=== PATIENT | female | born 1975 | race African-American/Black ===

== ENCOUNTER 2017-09-24 00:08 | Emergency (ER) | payer BC ==
[~2017-09-24] VITALS: Ht 162.6 cm; Wt 79.4 kg
[~2017-09-24 00:08] MED LIST: HYDROCHLOROTHIA25 M2 PO; HYDROCODONE-AP1 EAC6 PO; IMODIUM A-D2 MG PO; NORCO 5-325 TA1 EACH PO; NORVASC5 MG PO; SIMVASTATIN5 MG PO; [UNRECOGNIZED DRUG - OTHER] PO
[2017-09-24 00:30] LABS: URINE BILIRUBIN NEGATIVE (Negative); URINE BLOOD TRACE (Negative); URINE CLARITY SL CLOUDY; URINE COLOR YELLOW; URINE GLUCOSE-RANDOM* NEGATIVE (Negative); URINE KETONES NEGATIVE (Negative); URINE LEUKOCYTES NEGATIVE (Negative); URINE NITRITE NEGATIVE (Negative); URINE PROTEIN (DIPSTICK) TRACE (Negative); URINE SPECIFIC GRAVITY >= 1.030 (1.005-1.035); URINE UROBILINOGEN 0.2 E.U./dl (0.2-1.0)
[2017-09-24 00:59] LABS: BASOPHILS 0.9 % (0.0-2.0); EOSINOPHILS 2.4 % (0.0-3.0); HEMATOCRIT 37.9 % (37.0-47.0); HEMOGLOBIN 12.5 gm/dL (12.0-15.0); LYMPHOCYTES 26.6 % (24.0-44.0); MCH 27.1 pg (26.0-34.0); MCV 82.2 fL (80.0-100.0); MONOCYTES 11.4 % (1.0-8.0); PLATELET COUNT 327 thou/uL (150-400); POLYS 58.7 % (36.0-66.0); RBC 4.61 mil/uL (4.20-5.00); WBC 8.5 thou/uL (4.0-11.0)
[2017-09-24 01:01] LABS: ANION GAP 10 mmol/L (7-16); BUN 8 mg/dL (7-18); CALCIUM 8.8 mg/dL (8.5-10.1); CHLORIDE 107 mmol/L (98-107); CO2 22 mmol/L (21-32); CREATININE 0.9 mg/dL (0.6-1.0); GLUCOSE 88 mg/dL (74-106); POTASSIUM 3.8 mmol/L (3.5-5.1); SODIUM 139 mmol/L (136-145)
[2017-09-24 01:07] LABS: SGOT 59 U/L (15-37); TOTAL BILIRUBIN 0.4 mg/dL (<0.1-1.0); TOTAL PROTEIN 7.1 g/dL (6.4-8.2)
[2017-09-24] MEDS ORDERED: IMODIUM A-D2 MG PO (01:35)
[2017-09-24 02:09] VITALS: BP 128/88
== END 2017-09-24 02:11 | disposition home or self-care (01) ==
LOC: ER 00:08
PROVIDERS: Emergency Medicine
DX: R19.7 Diarrhea, unspecified (principal); R10.9 Unspecified abdominal pain; R30.0 Dysuria; I10 Essential (primary) hypertension; E78.5 Hyperlipidemia, unspecified; G43.909 Migraine, unspecified, not intractable, without status migrainosus; Z90.710 Acquired absence of both cervix and uterus

== ENCOUNTER 2020-03-16 18:09 | Emergency (ER) | payer OTHER ==
[~2020-03-16] VITALS: Ht 162.6 cm; Wt 86.2 kg
[2020-03-16 18:20] VITALS: BP 131/87
== END 2020-03-16 19:36 | disposition home or self-care (01) ==
LOC: ER 18:09
DX: J02.9 Acute pharyngitis, unspecified (principal); R09.81 Nasal congestion; R05 Cough; Z20.828 Contact with and (suspected) exposure to other viral communicable diseases; I10 Essential (primary) hypertension; E78.5 Hyperlipidemia, unspecified; G43.909 Migraine, unspecified, not intractable, without status migrainosus; Z90.711 Acquired absence of uterus with remaining cervical stump; Z79.899 Other long term (current) drug therapy

== ENCOUNTER 2020-06-30 14:10 | Emergency (ER) | payer OTHER ==
[~2020-06-30] VITALS: Ht 162.6 cm; Wt 83.9 kg
[2020-06-30] MEDS ORDERED: SPIRONOLACTONE25 MG PO (14:25)
[2020-06-30] MEDS ORDERED: CARVEDILOL12.5 MG PO (14:25)
[2020-06-30] MEDS ORDERED: ASA81BEC PO (14:26)
[2020-06-30] MEDS ORDERED: PLAVIX 75 MG TA75 MG PO (14:26)
[2020-06-30] MEDS ORDERED: ATORVASTATIN CA20 MG PO (14:28)
[2020-06-30 15:22] LABS: URINE BILIRUBIN 1+ (Negative); URINE BLOOD NEGATIVE (Negative); URINE CLARITY CLEAR; URINE COLOR YELLOW; URINE GLUCOSE-RANDOM* NEGATIVE (Negative); URINE KETONES TRACE (Negative); URINE LEUKOCYTES-REFLEX NEGATIVE (Negative); URINE NITRITE-REFLEX NEGATIVE (Negative); URINE PROTEIN (DIPSTICK) 1+ (Negative); URINE SPECIFIC GRAVITY >= 1.030 (1.005-1.035); URINE UROBILINOGEN 0.2 E.U./dl (0.2-1.0)
[2020-06-30 15:23] LABS: ICTOTEST (BILI CONFIRMATORY) Negative (Negative)
[2020-06-30 17:08] LABS: ABSOLUTE NEUTROPHILS 1.6 thou/uL (1.4-8.2); BASOPHILS 1.2 % (0.0-2.0); EOSINOPHILS 2.7 % (0.0-3.0); HEMATOCRIT 42.9 % (37.0-47.0); HEMOGLOBIN 13.7 gm/dL (12.0-15.0); LYMPHOCYTES 36.2 % (24.0-44.0); MCH 27.4 pg (26.0-34.0); MCHC 31.9 g/dL (28.0-37.0); MCV 85.9 fL (80.0-100.0); MONOCYTES 9.7 % (1.0-8.0); PLATELET COUNT 231 thou/uL (150-400); POLYS 50.2 % (36.0-66.0); RBC 4.99 mil/uL (4.20-5.00); RDW 14.5 % (10.5-14.5); WBC 3.2 thou/uL (4.0-11.0)
[2020-06-30 17:22] LABS: CALCIUM 9.5 mg/dL (8.5-10.1); CREATININE 1.1 mg/dL (0.6-1.0); POTASSIUM 3.7 mmol/L (3.5-5.1)
[2020-06-30 17:30] LABS: ALBUMIN 4.4 g/dL (3.4-5.0); TOTAL BILIRUBIN 0.3 mg/dL (0.2-1.0); TOTAL PROTEIN 8.3 g/dL (6.4-8.2)
[2020-06-30] MEDS ORDERED: ZOFRAN ODT4 MG PO (18:11)
[2020-06-30 18:53] VITALS: BP 134/74
--- NOTE | 2020-07-01 07:12 | EKG ---
[place] [address] [facility] [place] [employer] [address] ELECTROCARDIOGRAM REPORT Name: RANJAN GALLOWAY [id number] Admission: 06/30/20 Attend Phys: Discharge: 06/30/20 Date of : 71 Report #: [id number] [facility] ED Test Date: 2020-06-30 Test Time: 17:55:18 Pat Name: RANJAN GALLOWAY Department: Room: Gender: F Fern Gatherer: GARRETT : 1975 Requested By: Ming Avalos Order Number: [id number] MD: Kevin Wan Measurements Intervals [place] Rate: 54 P: 51 SC: 173 QRS: 0 QRSD: 86 T: 9 QT: 448 QTc: 425 Interpretive Statements Sinus rhythm LVH by voltage Nonspecific T abnrm, anterolateral leads No previous ECG available for comparison Electronically Signed On 07-01-2020 7:12:16 SWITCH ENGINEER by Kevin Wan [email or web address] <ELECTRONICALLY SIGNED> By: Kevin Wan MD, [facility] 07/01/20 0712 1755 1755 Kevin Wan MD, FACC /EPI
== END 2020-06-30 18:58 | disposition home or self-care (01) ==
LOC: ER 14:10
PROVIDERS: Emergency Medicine
DX: U07.1 COVID-19 (principal); B34.9 Viral infection, unspecified; E86.0 Dehydration; R11.0 Nausea; I10 Essential (primary) hypertension; E78.5 Hyperlipidemia, unspecified; G43.909 Migraine, unspecified, not intractable, without status migrainosus; I25.2 Old myocardial infarction; Z90.710 Acquired absence of both cervix and uterus; Z79.899 Other long term (current) drug therapy; Z79.82 Long term (current) use of aspirin; Z88.8 Allergy status to other drugs, medicaments and biological substances

== ENCOUNTER 2020-09-11 01:00 | Emergency (ER) | payer OTHER ==
[~2020-09-11] VITALS: Ht 162.6 cm; Wt 80.7 kg
[~2020-09-11 01:00] MED LIST changes: +ASA81BEC PO; +ATORVASTATIN CA20 MG PO; +CARVEDILOL12.5 MG PO; +PLAVIX 75 MG TA75 MG PO; +SPIRONOLACTONE25 MG PO; +ZOFRAN ODT4 MG PO
[2020-09-11 01:02] VITALS: BP 163/104
== END 2020-09-11 02:08 | disposition home or self-care (01) ==
LOC: ER 01:00
DX: S80.02XA Contusion of left knee, initial encounter (principal); Z20.822 Contact with and (suspected) exposure to COVID-19; B34.9 Viral infection, unspecified; I10 Essential (primary) hypertension; E78.5 Hyperlipidemia, unspecified; G43.909 Migraine, unspecified, not intractable, without status migrainosus; Z90.710 Acquired absence of both cervix and uterus; Z88.8 Allergy status to other drugs, medicaments and biological substances; X58.XXXA Exposure to other specified factors, initial encounter; Y93.89 Activity, other specified; Y92.89 Other specified places as the place of occurrence of the external cause; Y99.0 Civilian activity done for income or pay

== ENCOUNTER 2020-09-26 16:36 | Emergency (ER) | payer OTHER ==
[~2020-09-26] VITALS: Ht 162.6 cm; Wt 81.7 kg
[2020-09-26 18:05] VITALS: BP 126/76
== END 2020-09-26 17:44 | disposition home or self-care (01) ==
LOC: ER 16:36
DX: J02.9 Acute pharyngitis, unspecified (principal); Z20.822 Contact with and (suspected) exposure to COVID-19; I10 Essential (primary) hypertension; E78.5 Hyperlipidemia, unspecified; G43.909 Migraine, unspecified, not intractable, without status migrainosus; I25.2 Old myocardial infarction; Z90.711 Acquired absence of uterus with remaining cervical stump; Z86.16 Personal history of COVID-19; Z79.899 Other long term (current) drug therapy; Z79.82 Long term (current) use of aspirin; Z88.8 Allergy status to other drugs, medicaments and biological substances

== ENCOUNTER 2021-01-13 18:43 | Emergency (ER) | payer OTHER ==
[~2021-01-13] VITALS: Ht 162.6 cm; Wt 81.7 kg
[2021-01-13] MEDS ORDERED: NORCO5 PO (20:20)
[2021-01-13 20:26] VITALS: BP 126/84
== END 2021-01-13 20:47 | disposition home or self-care (01) ==
LOC: ER 18:43
DX: S80.12XA Contusion of left lower leg, initial encounter (principal); I25.2 Old myocardial infarction; I10 Essential (primary) hypertension; E78.5 Hyperlipidemia, unspecified; G43.909 Migraine, unspecified, not intractable, without status migrainosus; Z90.710 Acquired absence of both cervix and uterus; Z86.16 Personal history of COVID-19; Z79.899 Other long term (current) drug therapy; Z79.82 Long term (current) use of aspirin; Z79.891 Long term (current) use of opiate analgesic; Z88.8 Allergy status to other drugs, medicaments and biological substances; W22.8XXA Striking against or struck by other objects, initial encounter; Y93.89 Activity, other specified; Y92.89 Other specified places as the place of occurrence of the external cause; Y99.8 Other external cause status

== ENCOUNTER 2021-01-24 23:12 | Emergency (ER) | payer OTHER ==
[~2021-01-24] VITALS: Ht 162.6 cm; Wt 86.2 kg
[~2021-01-24 23:12] MED LIST changes: +NORCO5 PO
[2021-01-24] MEDS ORDERED: BUTALB-CAFF-AC1 EACH PO (23:25)
[2021-01-24] MEDS ORDERED: NORCO7.5 PO (23:28)
[2021-01-25 00:05] VITALS: BP 135/81
== END 2021-01-25 00:06 | disposition home or self-care (01) ==
LOC: ER 23:12
DX: S80.12XA Contusion of left lower leg, initial encounter (principal); I10 Essential (primary) hypertension; E78.5 Hyperlipidemia, unspecified; G43.909 Migraine, unspecified, not intractable, without status migrainosus; Z90.710 Acquired absence of both cervix and uterus; Z79.82 Long term (current) use of aspirin; Z79.899 Other long term (current) drug therapy; Z88.9 Allergy status to unspecified drugs, medicaments and biological substances; W22.09XA Striking against other stationary object, initial encounter; Y93.89 Activity, other specified; Y92.89 Other specified places as the place of occurrence of the external cause; Y99.8 Other external cause status

== ENCOUNTER 2021-03-13 14:58 | Emergency (ER) | payer OTHER ==
[~2021-03-13] VITALS: Ht 162.6 cm; Wt 90.7 kg
[~2021-03-13 14:58] MED LIST changes: +BUTALB-CAFF-AC1 EACH PO; +NORCO7.5 PO
[2021-03-13] MEDS ORDERED: APAP W/CODEINE1 TA2 PO (16:18)
[2021-03-13 17:10] VITALS: BP 141/100
== END 2021-03-14 14:38 | disposition home or self-care (01) ==
LOC: ER 14:58
PROVIDERS: Emergency Medicine
DX: J06.9 Acute upper respiratory infection, unspecified (principal); Z20.822 Contact with and (suspected) exposure to COVID-19; I10 Essential (primary) hypertension; E78.5 Hyperlipidemia, unspecified; G43.909 Migraine, unspecified, not intractable, without status migrainosus; I25.2 Old myocardial infarction; Z90.710 Acquired absence of both cervix and uterus; Z95.1 Presence of aortocoronary bypass graft; Z86.16 Personal history of COVID-19; Z79.82 Long term (current) use of aspirin; Z79.891 Long term (current) use of opiate analgesic; Z79.1 Long term (current) use of non-steroidal anti-inflammatories (NSAID); Z88.8 Allergy status to other drugs, medicaments and biological substances